=== PATIENT | male | born 1990 | race Caucasian/White ===

== ENCOUNTER 2018-02-27 22:31 | Emergency (ER) | payer SELFPAY ==
[~2018-02-27] VITALS: Ht 182.9 cm; Wt 103.0 kg
[2018-02-27 22:35] VITALS: BP 123/77; PULSE 77; RESP 15; TEMP 97.8; O2SAT 98
--- NOTE | 2018-02-27 23:19 | PD ---
HPI Chief Complaint: Laceration/Skin Injury Time Seen by Provider: 23:00 Travel History International Travel<30 days: No Contact w/Intl Traveler<30days: No Traveled to known affect area: No History of Present Illness HPI 27-year-old male who is right-handed, presents emergency department for evaluation of a puncture wound to his left hand. Patient was attempting to cut the corner piece out of the brownie davis when he slipped and punctured the palmar surface of his left hand with a knife. He states he experienced immediate pain. Severe, constant. It is exacerbated by movement. He feels as though his second and third digits are numb and tingling. Denies any alterations in range of motion. He is uncertain of his tetanus status. S. Patient has no other symptoms to report. PFSH Past Medical History Medical History: Denies Significant Hx Tetanus Vaccination: Unknown Influenza Vaccination: No Past Surgical History Surgical History: No Previous Surgery Social History Alcohol Use: No Tobacco Use: No Substance Use: Yes (MJ) Allergies-Medications (Allergen,Severity, Reaction): Coded Allergies: No Known Allergies (Unverified , 02/27/18) Reported Meds & Prescriptions Reported Meds & Active Scripts Active Carlotta (Hydrocodone-Acetaminophen) 5 Mg-325 Mg Tab 1 Tab PO Q6H PRN Ibuprofen 800 Mg Tab 800 Mg PO Q8H PRN Keflex (Cephalexin) 500 Mg Cap 500 Mg PO Q6H 5 Days Bactrim DS (Sulfamethoxazole-Trimethoprim) 800-160 Mg Tab 1 Tab PO BID Review of Systems Except as stated in HPI: all other systems reviewed are Neg Physical Exam Narrative GENERAL: Well-nourished, well-developed male patient in no acute distress. SKIN: Focused skin assessment warm/dry. 1 cm linear puncture wound on the palmar surface of the left hand. It is well approximated. Bleeding is controlled. HEAD: Normocephalic. EYES: No scleral icterus. No injection or drainage. NECK: Supple, trachea midline. No JVD or lymphadenopathy. CARDIOVASCULAR: Regular rate and rhythm without murmurs, gallops, or rubs. RESPIRATORY: Breath sounds equal bilaterally. No accessory muscle use. GASTROINTESTINAL: Abdomen soft, non-tender, nondistended. MUSCULOSKELETAL: No cyanosis, or edema. Patient has full flexion-extension of all the digits of the affected hand. He can touch thumb to every digit of the left hand. Cap refill within normal limits. Sensation is intact to the distal digits however patient reports a numb feeling in his second and third digits. BACK: Nontender without obvious deformity. No CVA tenderness. Data Data Last Documented VS Vital Signs Date Time Temp Pulse Resp B/P (MAP) Pulse Ox O2 Delivery O2 Flow Rate FiO2 02/27/18 22:35 97.8 77 15 123/77 (92) 98 Orders Orders Hand, Complete ([id number]) (02/27/18 ) Ibuprofen (Motrin) (02/27/18 23:30) Tetanus/Diphtheria Tox Adult (Tetanus/Di (02/27/18 23:30) ^ Irrigate (02/28/18 00:28) Wound Care (02/28/18 00:28) Ed Discharge Order (02/28/18 00:29) MDM Medical Decision Making Medical Screen Exam Complete: Yes Emergency Medical Condition: Yes Medical Record Reviewed: Yes Differential Diagnosis Puncture wound versus tendon injury versus foreign body versus open fracture Narrative Course 27-year-old male presents emergency department for evaluation of a puncture wound to the left hand. The wound is well approximated. It does not need to be approximated by me. Plus to reduce risk of infection, the puncture wound will not be closed. X-ray imaging confirms no acute bony abnormality. Patient will be started on oral antibiotics empirically and offer pain control. He is encouraged to return immediately with acute worsening symptoms. Diagnosis Primary Impression: Puncture wound of hand, left Qualified Codes: S61.432A - Puncture wound without foreign body of left hand, initial encounter Referrals: Hand Surgeon Primary Care Physician Patient Instructions: Acute Wound Care (DC), General Instructions Additional Instructions: KEEP THE AREA CLEAN AND DRY CODY WRAP FOR COMPRESSION ELEVATE TO REDUCE PAIN FOLLOW UP WITH HAND SPECIALIST IF NUMBNESS PERSISTS RETURN TO ED WITH ACUTE WORSENING OF SYMPTOMS Med/Other Pt SpecificInfo: Prescription(s) given Scripts Hydrocodone-Acetaminophen (Carlotta) 5 Mg-325 Mg Tab 1 TAB PO Q6H Y for PAIN GREATER THAN 6, #12 TAB 0 Refills Prov: Maritza Woods 02/28/18 Ibuprofen (Ibuprofen) 800 Mg Tab 800 MG PO Q8H Y for Pain/Inflammation, #30 TAB 0 Refills Prov: Maritza Woods 02/28/18 Cephalexin (Keflex) 500 Mg Cap 500 MG PO Q6H for Infection for 5 Days, #20 CAP 0 Refills Prov: Maritza Woods 02/28/18 Sulfamethoxazole-Trimethoprim (Bactrim DS) 800-160 Mg Tab 1 TAB PO BID for Infection, #20 TAB 0 Refills Prov: Maritza Woods 02/28/18 Disposition: 01 DISCHARGE HOME Condition: Stable Maritza Woods Feb 27, 2018 23:19
[2018-02-27] MEDS ORDERED: TETANUS/DIPHTHERIA TOXOID ADULT 0.5 ML VIAL IM ONE (23:30)
[2018-02-27] MEDS ORDERED: IBUPROFEN 800 MG TAB PO ONE (23:30)
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
[2018-02-28] MEDS ORDERED: NORC5TAB PO (00:32)
[2018-02-28] MEDS ORDERED: CEPH-460 PO (00:32)
[2018-02-28] MEDS ORDERED: IBUP1TAB7 PO (00:32)
[2018-02-28] MEDS ORDERED: BACT800T5 PO (00:32)
== END 2018-02-28 01:09 | disposition home or self-care (01) ==
LOC: NEPD 22:31
DX: S61.432A Puncture wound without foreign body of left hand, initial encounter (principal); R20.0 Anesthesia of skin; R20.2 Paresthesia of skin; Z23 Encounter for immunization; W26.0XXA Contact with knife, initial encounter; Y93.G9 Activity, other involving cooking and grilling
CPT/HCPCS: 73130; 90471; 90714

== ENCOUNTER 2018-03-03 04:27 | Emergency (ER) | payer SELFPAY ==
[~2018-03-03] VITALS: Ht 193 cm; Wt 110.0 kg
[~2018-03-03 04:27] MED LIST: BACT800T5 PO; CEPH-460 PO; IBUP1TAB7 PO; NORC5TAB PO
[2018-03-03 04:30] VITALS: BP 173/94; PULSE 97; RESP 18; TEMP 98.9; O2SAT 97
--- NOTE | 2018-03-03 04:56 | PD ---
HPI Chief Complaint: Skin Problem Time Seen by Provider: 04:54 Travel History International Travel<30 days: No Contact w/Intl Traveler<30days: No Traveled to known affect area: No History of Present Illness HPI 27-year-old male presents emergency department for evaluation of a painful area of edema on the palmar surface of the left distal fourth digit. Patient states he noticed this this morning. It woke him up. He states he did have a little puncture wound in the finger last week but it seemed to be healing on its own. Denies any fever chills. Pain is severe, throbbing, exacerbated by touch. Patient is up-to-date on his tetanus. He has no other symptoms to report. PFSH Past Medical History Medical History: Denies Significant Hx Diminished Hearing: No Tetanus Vaccination: < 5 Years Influenza Vaccination: No Past Surgical History Surgical History: No Previous Surgery Social History Alcohol Use: No Tobacco Use: No Substance Use: Yes (MJ) Allergies-Medications (Allergen,Severity, Reaction): Coded Allergies: sulfamethoxazole (Verified Allergy, Severe, 03/03/18) hives trimethoprim (Verified Allergy, Severe, 03/03/18) hives Reported Meds & Prescriptions Reported Meds & Active Scripts Active Percocet (Oxycodone-Acetaminophen) 5-325 mg Tab 1 Tab PO Q6H PRN Clindamycin (Clindamycin HCl) 150 Mg Cap 300 Mg PO Q6H 10 Days [place] (Hydrocodone-Acetaminophen) 5 Mg-325 Mg Tab 1 Tab PO Q6H PRN Ibuprofen 800 Mg Tab 800 Mg PO Q8H PRN Keflex (Cephalexin) 500 Mg Cap 500 Mg PO Q6H 5 Days Review of Systems Except as stated in HPI: all other systems reviewed are Neg Physical Exam Narrative GENERAL: Well-nourished, well-developed male patient in no acute distress. SKIN: Focused skin assessment warm/dry. Edema of the plantar surface of the left distal fourth digit. There is a small lesion. There is mild fluctuance. Tender to touch. HEAD: Normocephalic. EYES: No scleral icterus. No injection or drainage. NECK: Supple, trachea midline. No JVD or lymphadenopathy. CARDIOVASCULAR: Regular rate and rhythm without murmurs, gallops, or rubs. RESPIRATORY: Breath sounds equal bilaterally. No accessory muscle use. GASTROINTESTINAL: Abdomen soft, non-tender, nondistended. MUSCULOSKELETAL: No cyanosis, or edema. BACK: Nontender without obvious deformity. No CVA tenderness. Data Data Last Documented VS Vital Signs Date Time Temp Pulse Resp B/P (MAP) Pulse Ox O2 Delivery O2 Flow Rate FiO2 03/03/18 04:30 98.9 97 18 173/94 (120) 97 Orders Orders Wound Culture And Gram Stain (03/03/18 05:15) Oxycodone-Acetamin 5-325 Mg (Percocet (03/03/18 05:15) Ed Discharge Order (03/03/18 05:15) MDM Medical Decision Making Medical Screen Exam Complete: Yes Emergency Medical Condition: Yes Medical Record Reviewed: Yes Differential Diagnosis [place] versus paronychia versus abscess versus wart Narrative Course 27-year-old male presents emergency department for evaluation. Patient has what appears to be a felon. I&D is complete. He will be started on clindamycin. Patient is already taking Keflex from a recent injury. He is counseled on care and agrees to return immediately with any acute worsening symptoms Procedures Procedure Narrative INCISION AND DRAINAGE OF ABSCESS: The area was prepped and was sterilely draped. Topical ethyl chloride was used to anesthetize the area. The area was properly anesthetized. A number [15 scalpel was used to make a 1-cm incision across the area of the abscess. Cultures were obtained. The abscess was drained an irrigated with normal saline. Dressing was applied. Patient tolerated this well. Diagnosis Primary Impression: Felon of finger of left hand Referrals: Primary Care Physician Patient Instructions: Abscess (ED), General Instructions Additional Instructions: EPSOM salt soaks 3 times a day Elevate to reduce pain and swelling Follow-up with a primary care provider Return immediately to the emergency department with any acute worsening symptoms Med/Other Pt SpecificInfo: Prescription(s) given Scripts Oxycodone-Acetaminophen (Percocet) 5-325 mg Tab 1 TAB PO Q6H Y for PAIN GREATER THAN 5, #6 TAB 0 Refills Prov: Maritza Woods 03/03/18 Clindamycin (Clindamycin) 150 Mg Cap 300 MG PO Q6H for Infection for 10 Days, #80 CAP 0 Refills Prov: Maritza Woods 03/03/18 Disposition: 01 DISCHARGE HOME Condition: Stable Maritza Woods Mar 03, 2018 04:56
[2018-03-03] MEDS ORDERED: oxyCODONE/ACETAMINOPHEN 5 MG/325 MG TAB PO ONE (05:15)
[2018-03-03] MEDS ORDERED: PERC5TAB12 PO (05:17)
[2018-03-03] MEDS ORDERED: CLIN150C14 PO (05:17)
== END 2018-03-03 05:51 | disposition home or self-care (01) ==
LOC: NEPD 04:27
DX: L03.012 Cellulitis of left finger (principal); B95.62 Methicillin resistant Staphylococcus aureus infection as the cause of diseases classified elsewhere
CPT/HCPCS: 10060; 86403; 87070; 87186

== ENCOUNTER 2018-03-20 22:00 | Emergency (ER) | payer SELFPAY ==
[~2018-03-20 22:00] MED LIST changes: -BACT800T5 PO; +CLIN150C14 PO; +PERC5TAB12 PO
== END 2018-03-20 22:44 | disposition left against medical advice (07) ==
LOC: NED 22:00
DX: Z53.21 Procedure and treatment not carried out due to patient leaving prior to being seen by health care provider (principal)
CPT/HCPCS: 99281

== ENCOUNTER 2018-04-03 03:27 | Inpatient (IN) | payer SELFPAY ==
[2018-04-03] VITALS (21 sets, daily range): BP systolic 100–142; BP diastolic 52–109; PULSE 66–112; RESP 12–18; TEMP 97.6–99.4; O2SAT 84–100
[~2018-04-03] VITALS: Ht 190.5 cm; Wt 104.6 kg
--- NOTE | 2018-04-03 03:31 | PD ---
HPI Chief Complaint: OD Time Seen by Provider: 03:30 Travel History International Travel<30 days: No Contact w/Intl Traveler<30days: No Traveled to known affect area: No History of Present Illness HPI Initial call for unresponsive sobriety home, EMS arrived patient was found to have shallow breathing, given 2 mg of Narcan IM and now patient is breathing spontaneously on his own but is still confused with repetitive questions. Per EMS the patient was originally laying face down on his own vomitus, patient is known as IV drug user and thus had no access, EMS was unable to start an IV and instead provided supplemental oxygen via bpm and Narcan IM. Patient stated that he used fentanyl, heroin, cocaine today. Patient states allergy to sulfa Past medical history significant for MRSA infections and IVDU PFSH Past Medical History Diminished Hearing: No Social History Alcohol Use: No Tobacco Use: No Substance Use: Yes (MJ) Allergies-Medications (Allergen,Severity, Reaction): Coded Allergies: sulfamethoxazole (Verified Allergy, Severe, 03/03/18) hives trimethoprim (Verified Allergy, Severe, 03/03/18) hives Reported Meds & Prescriptions Reported Meds & Active Scripts Active Percocet (Oxycodone-Acetaminophen) 5-325 mg Tab 1 Tab PO Q6H PRN Clindamycin (Clindamycin HCl) 150 Mg Cap 300 Mg PO Q6H 10 Days [place] (Hydrocodone-Acetaminophen) 5 Mg-325 Mg Tab 1 Tab PO Q6H PRN Ibuprofen 800 Mg Tab 800 Mg PO Q8H PRN Keflex (Cephalexin) 500 Mg Cap 500 Mg PO Q6H 5 Days Review of Systems ROS Limitations: Intoxication, Altered Mental Status General / Constitutional: No: Fever Eyes: No: Visual changes HENT: No: Headaches Cardiovascular: No: Chest Pain or Discomfort Respiratory: No: Shortness of Breath Gastrointestinal: No: Abdominal Pain Genitourinary: No: Dysuria Musculoskeletal: No: Pain Skin: No Rash Neurologic: Positive: Change in Mentation Psychiatric: No: Depression Endocrine: No: Polydipsia Hematologic/Lymphatic: No: Easy Bruising Physical Exam Exam Limitations: Intoxication, Altered Mental Status Narrative GENERAL: SKIN: Warm and dry. Patient had dry vomitus all over his hair posterior head face HEAD: Atraumatic. Normocephalic. EYES: Pupils equal and round. No scleral icterus. No injection or drainage. ENT: No nasal bleeding or discharge. Mucous membranes pink and moist. NECK: Trachea midline. No JVD. CARDIOVASCULAR: Regular rhythm, tachycardic rate RESPIRATORY: No accessory muscle use. Clear to auscultation. Breath sounds equal bilaterally. GASTROINTESTINAL: Abdomen soft, non-tender, nondistended. MUSCULOSKELETAL: Extremities without clubbing, cyanosis, or edema. No obvious deformities. NEUROLOGICAL: Awake and alert. No obvious cranial nerve deficits. Motor grossly within normal limits. Five out of 5 muscle strength in the arms and legs. Normal speech. PSYCHIATRIC: Appropriate mood and affect; insight and judgment normal. Data Data Last Documented VS Vital Signs Date Time Temp Pulse Resp B/P (MAP) Pulse Ox O2 Delivery O2 Flow Rate FiO2 04/03/18 05:20 60 04/03/18 05:00 108 16 100/52 (68) 100 Ventilator 04/03/18 03:41 2.00 04/03/18 03:33 97.6 Orders Orders Complete Blood Count With Diff (04/03/18 03:31) Comprehensive Metabolic Panel (04/03/18 03:31) Creatine Kinase (Cpk) (04/03/18 03:31) Troponin I (04/03/18 03:31) Prothrombin Time / Inr (Pt) (04/03/18 03:31) Act Partial Throm Time (Ptt) (04/03/18 03:31) Lipase (04/03/18 03:31) Urinalysis - C+S If Indicated (04/03/18 03:31) Thyroid Stimulating Hormone (04/03/18 03:31) Chest, Single Ap (04/03/18 03:31) Ct Brain W/O Iv Contrast(Rout) (04/03/18 03:31) Iv Access Insert/Monitor (04/03/18 03:31) Ecg Monitoring (04/03/18 03:31) Oximetry (04/03/18 03:31) Drug Screen, Random Urine (04/03/18 03:31) Alcohol (Ethanol) (04/03/18 03:31) Salicylates (Aspirin) (04/03/18 03:31) Tylenol (Acetaminophen) (04/03/18 03:31) Sodium Chlor 0.9% 1000 Ml Inj (Ns 1000 M (04/03/18 03:45) Sepsis Workup Initiated (04/03/18 ) Lactic Acid Sepsis Protocol (04/03/18 03:45) Blood Culture (04/03/18 03:45) Metronidazole 500 Mg Inj (Flagyl 500 Mg (04/03/18 03:45) Levofloxacin 750 Mg Premix Inj (Levaquin (04/03/18 03:45) Naloxone Inj (Narcan Inj) (04/03/18 04:15) Ct Cerv Spine W/O Contrast (04/03/18 04:03) Arterial Blood Gas (Abg) (04/03/18 04:09) Resp Bipap / Cpap Non Invas Vt (04/03/18 04:09) Etomidate Inj (Amidate Inj) (04/03/18 04:14) Succinylcholine Inj (Quelicin Inj) (04/03/18 04:15) Propofol 500 Mg/50 Ml Inj (Diprivan 500 (04/03/18 04:29) Midazolam Inj (Versed Inj) (04/03/18 04:35) Propofol 1000 Mg/100 Ml Inj (Diprivan 10 (04/03/18 04:45) Midazolam Inj (Versed Inj) (04/03/18 04:45) Midazolam Inj (Versed Inj) (04/03/18 04:45) Midazolam Inj (Versed Inj) (04/03/18 04:43) Etomidate Inj (Amidate Inj) (04/03/18 04:45) Succinylcholine Inj (Quelicin Inj) (04/03/18 04:45) Methylprednisolone So Succ Inj (Solumedr (04/03/18 04:45) Sodium Chlor 0.9% 1000 Ml Inj (Ns 1000 M (04/03/18 04:44) Sodium Chlor 0.9% 1000 Ml Inj (Ns 1000 M (04/03/18 04:44) Sodium Chlor 0.9% 1000 Ml Inj (Ns 1000 M (04/03/18 04:44) Chest, Single Ap (04/03/18 04:47) Urinary Catheter Insert/Apply (04/03/18 04:47) [place]-Gastric Tube Insert/Mon (04/03/18 04:47) CKMB (04/03/18 03:50) CKMB% (04/03/18 03:50) Labs Laboratory Tests Test 04/03/18 03:50 04/03/18 03:56 04/03/18 04:51 04/03/18 05:07 White Blood Count 18.6 TH/MM3 Red Blood Count 5.23 MIL/MM3 Hemoglobin 15.4 GM/DL Hematocrit 45.8 % Mean Corpuscular Volume 87.7 FL Mean Corpuscular Hemoglobin 29.4 PG Mean Corpuscular Hemoglobin Concent 33.5 % Red Cell Distribution Width 13.4 % Platelet Count 387 TH/MM3 Mean Platelet Volume 8.8 FL Neutrophils (%) (Auto) 89.7 % Lymphocytes (%) (Auto) 6.5 % Monocytes (%) (Auto) 2.7 % Eosinophils (%) (Auto) 0.8 % Basophils (%) (Auto) 0.3 % Neutrophils # (Auto) 16.6 TH/MM3 Lymphocytes # (Auto) 1.2 TH/MM3 Monocytes # (Auto) 0.5 TH/MM3 Eosinophils # (Auto) 0.2 TH/MM3 Basophils # (Auto) 0.1 TH/MM3 CBC Comment DIFF FINAL Differential Comment Prothrombin Time 11.0 SEC Prothromb Time International Ratio 1.1 RATIO Activated Partial Thromboplast Time 27.1 SEC Blood Urea Nitrogen 8 MG/DL Creatinine 1.73 MG/DL Random Glucose 357 MG/DL Total Protein 7.6 GM/DL Albumin 2.9 GM/DL Calcium Level 8.2 MG/DL Alkaline Phosphatase 90 U/L Aspartate Amino Transf (AST/SGOT) 45 U/L Alanine Aminotransferase (ALT/SGPT) 47 U/L Total Bilirubin 0.5 MG/DL Sodium Level 137 MEQ/L Potassium Level 4.4 MEQ/L Chloride Level 96 MEQ/L Carbon Dioxide Level 30.3 MEQ/L Anion Gap 11 MEQ/L Estimat Glomerular Filtration Rate 48 ML/MIN Total Creatine Kinase 640 U/L Creatine Kinase MB 4.0 NG/ML Creatine Kinase MB % 0.6 % Troponin I 0.13 NG/ML Lipase 223 U/L Thyroid Stimulating Hormone 3rd Gen 0.979 uIU/ML Acetaminophen Level LESS THAN 2.0 MCG/ML Ethyl Alcohol Level 3 MG/DL Lactic Acid Level 3.6 mmol/L Urine Color YELLOW Urine Turbidity CLEAR Urine pH 5.5 Urine Specific Dierks 1.012 Urine Protein TRACE mg/dL Urine Glucose (UA) 1000 mg/dL Urine Ketones NEG mg/dL Urine Occult Blood NEG Urine Nitrite NEG Urine Bilirubin NEG Urine Urobilinogen LESS THAN 2.0 MG/DL Urine Leukocyte Esterase NEG Urine RBC 1 /hpf Urine WBC 3 /hpf Urine Renal Epithelial Cells 1 /hpf Urine Waxy Casts 6 /lpf Urine Mucus FEW /lpf Microscopic Urinalysis Comment CULT NOT INDICATED MDM Medical Decision Making Medical Screen Exam Complete: Yes Emergency Medical Condition: Yes Medical Record Reviewed: Yes Interpretation(s) EKG is sinus tachycardia with short SC interval, 112 bpm, incomplete right bundle branch block pattern, no evidence of any ST elevation DC pattern Differential Diagnosis Hypoglycemia versus aspiration pneumonia versus right forearm abscess versus sepsis versus electrolyte imbalance versus intracranial hemorrhage versus overdose opiate Narrative Course CBC shows 18,000 leukocytosis with left shift 90%, no anemia normal platelet count Coagulation profile is within normal limits UA is not consistent with a UTI Toxicology is negative for Tylenol and alcohol Electrolytes are within normal limits however creatinine is elevated at 1.73, GFR is decreased at 48, random glucose is 357, lactic acid is 3.6, total CPK is elevated at 640 CK-MB percent is normal however the troponin is elevated at 0.13 TSH is within normal limits ABG after intubation shows a pH of 7.328, PCO2 of 52, PaO2 of 340-100% vent was adjusted to 60% FiO2 Immediately after reviewing the chest x-ray which showed noncardiogenic pulmonary edema, patient was given Flagyl and Levaquin to cover for aspiration pneumonia, as well as intubation due to the persistent hypoxemia despite supplemental oxygen and increased work of breathing present IN the patient Critical Care Narrative CRITICAL CARE NOTE: With evaluation of the patient, labs, EKG, receipt of radiologic studies, administration of medications, reevaluation the patient and discussion of the patient with the admitting physicians, the total critical care time was [60] minutes. Time to perform other separately billable procedures was not included in the critical care time. Procedures Procedure Narrative After the risks and benefits were discussed the following procedure was performed: INTUBATION: The patient was put in optimal position for the procedure. Rapid sequence intubation was initiated by me using [20] milligrams of etomidate IV and [100] milligrams of [succynilcholine] IV. The patient was intubated with a [8-0] cuffed endotracheal tube. Tube placement was confirmed by visualization of the tube and balloon passing through the cords, capnometry and subsequent chest x-ray. Breath sounds were equal and well aerated bilaterally postintubation. No breath sounds over stomach. Patient tolerated procedure well. Diagnosis Primary Impression: Opiate overdose Additional Impressions: Hypoxemic respiratory failure status post intubation Heroin related noncardiogenic pulmonary edema Aspiration Kishan Madrid MD April 03, 2018 03:31
[2018-04-03] MEDS ORDERED: SODIUM CHLOR 0.9% 1000 ML INJ 1,000 ML IV ONE ×3 (03:45→04:44)
[2018-04-03] MEDS ORDERED: LEVOFLOXACIN 750 MG PREMIX INJ 150 ML IV STA (03:45)
[2018-04-03] MEDS ORDERED: metroNIDAZOLE 500 MG INJ 100 ML IV STA (03:45)
[2018-04-03] MEDS ORDERED: ETOMIDATE 40 MG/20 ML VIAL ONE (04:14)
[2018-04-03 04:15] LABS: AUTOMATED NEUTROPHIL # 16.6 TH/MM3 (1.8-7.7); BASOPHIL # 0.1 TH/MM3 (0-0.2); BASOPHIL % 0.3 % (0.0-2.0); EOSINOPHIL # 0.2 TH/MM3 (0-0.4); EOSINOPHIL % 0.8 % (0.0-4.0); HEMATOCRIT 45.8 % (39.0-51.0); HEMOGLOBIN 15.4 GM/DL (13.0-17.0); LYMPH % 6.5 % (9.0-44.0); LYMPHOCYTE # 1.2 TH/MM3 (1.0-4.8); MEAN CELL VOLUME 87.7 FL (80.0-100.0); MEAN CORPUSCULAR HEMOGLOBIN 29.4 PG (27.0-34.0); MEAN CORPUSCULAR HGB CONC 33.5 % (32.0-36.0); MEAN PLATELET VOLUME 8.8 FL (7.0-11.0); MONO % 2.7 % (0.0-8.0); MONOCYTE # 0.5 TH/MM3 (0-0.9); NEUT % 89.7 % (16.0-70.0); PLATELET COUNT 387 TH/MM3 (150-450); RED BLOOD COUNT 5.23 MIL/MM3 (4.50-5.90); RED CELL DISTRIBUTION WIDTH 13.4 % (11.6-17.2); WHITE BLOOD COUNT 18.6 TH/MM3 (4.0-11.0)
[2018-04-03] MEDS ORDERED: NALOXONE HCL 2 MG/2 ML VIAL IV PUSH ONE (04:15)
[2018-04-03] MEDS ORDERED: SUCCINYLCHOLINE CHLORIDE 200 MG/10 ML VIAL ONE (04:15)
--- NOTE | 2018-04-03 04:20 | RADRPT ---
EXAM DATE: 04/03/2018 3:53 AM EDT AGE/SEX: 27 years / Male INDICATIONS: Overdose. ETOH. Possible aspiration. CLINICAL DATA: This is the patient's initial encounter. Patient reports that signs and symptoms have been present for 1 day and indicates a pain score of 8/10. MEDICAL/SURGICAL HISTORY: None. None. COMPARISON: No prior [facility] exams available for comparison. FINDINGS: Mild, diffuse parenchymal opacities seen of both lungs and appear to be a combination of airspace and interstitial disease. No pleural effusion demonstrated. No pneumothorax. Heart size within normal limits. CONCLUSION: Nonspecific bilateral diffuse pulmonary opacities suggesting pneumonitis. Normal heart size. Electronically signed by: Jonathan Carrero MD 04/03/2018 4:19 AM EDT
[2018-04-03 04:23] LABS: INTERNATIONAL NORMALIZED RATIO 1.1 RATIO
[2018-04-03 04:27] LABS: ALBUMIN 2.9 GM/DL (3.4-5.0); ALT (GPT) 47 U/L (12-78); AST (GOT) 45 U/L (15-37); BICARBONATE 30.3 MEQ/L (21.0-32.0); BLOOD UREA NITROGEN 8 MG/DL (7-18); CALCIUM 8.2 MG/DL (8.5-10.1); CHLORIDE 96 MEQ/L (98-107); CREATININE 1.73 MG/DL (0.60-1.30); GLOMERULAR FILTRATION RATE 48 ML/MIN (>89); GLUCOSE,RANDOM 357 MG/DL (74-106); SODIUM (NA) 137 MEQ/L (136-145)
[2018-04-03] MEDS ORDERED: PROPOFOL 500 MG/50 ML INJ 50 ML ONE (04:29)
[2018-04-03 04:31] LABS: LACTIC ACID SEPSIS PROTOCOL 3.6 mmol/L (0.4-2.0)
[2018-04-03 04:35] LABS: ALKALINE PHOSPHATASE 90 U/L (45-117); TOTAL BILIRUBIN ADULT 0.5 MG/DL (0.2-1.0); TOTAL PROTEIN 7.6 GM/DL (6.4-8.2); TROPONIN I 0.13 NG/ML (0.02-0.05)
[2018-04-03] MEDS ORDERED: MIDAZOLAM HCL 5 MG/ML VIAL (1 ML) ONE ×3 (04:35→05:32)
[2018-04-03] MEDS ORDERED: SODIUM CHLOR 0.9% 1000 ML INJ 400 ML IV ONE (04:44)
[2018-04-03] MEDS ORDERED: PROPOFOL 1000 MG/100 ML INJ 100 ML IV PRN (04:45)
[2018-04-03] MEDS ORDERED: ETOMIDATE 20 MG/10 ML VIAL IV PUSH ONE (04:45)
[2018-04-03] MEDS ORDERED: methylPREDNISolone SOD SUCC 125 MG/2 ML VIAL IV PUSH ONE (04:45)
[2018-04-03] MEDS ORDERED: SUCCINYLCHOLINE CHLORIDE 100 MG/5 ML SYRINGE IV PUSH ONE (04:45)
[2018-04-03] MEDS ORDERED: MIDAZOLAM HCL 5 MG/5 ML VIAL IV PUSH ONE ×2 (04:45)
[2018-04-03 04:49] LABS: ACETAMINOPHEN LESS THAN 2.0 MCG/ML (10.0-30.0)
[2018-04-03 05:04] LABS: BILIRUBIN, URINE NEG (NEG); BLOOD, URINE NEG (NEG); GLUCOSE,URINE 1000 mg/dL (NEG); KETONE, URINE NEG (NEG); MUCUS URINE FEW /lpf (OCC); NITRITE,URINE NEG (NEG); PH, URINE 5.5 (5.0-8.5); RENAL EPITHELIAL CELLS 1 /hpf; URINE COLOR YELLOW (YELLW/STRAW); URINE LEUKOCYTE ESTERASE NEG (NEG); WAXY CAST, URINE 6 /lpf
--- NOTE | 2018-04-03 05:23 | RADRPT ---
EXAM DATE: 04/03/2018 5:12 AM EDT AGE/SEX: 27 years / Male INDICATIONS: Overdose. Post intubation. CLINICAL DATA: This is the patient's subsequent encounter. Patient reports that signs and symptoms h ave been present for 1 day and indicates a pain score of Nonresponsive. MEDICAL/SURGICAL HISTORY: None. None. COMPARISON: [facility] [place], CHEST SINGLE AP, 04/03/2018. . FINDINGS: Patchy diffuse airspace opacities are again seen of both lungs, both sides slightly worse in the inte rim. No large effusion. No pneumothorax. Heart size stable, within normal limits. Patient is now intubated. Endotracheal tube tip is approximately 4 cm above the miguel ángel. There is a na sogastric tube that courses into the stomach. CONCLUSION: Diffuse airspace opacities again noted and are slightly worse in the interim. Appropriate position of the endotracheal tube tip. Electronically signed by: Jonathan Carrero MD 04/03/2018 5:21 AM EDT
[2018-04-03] MEDS: SODIUM CHLOR 0.9% 1000 ML INJ 1,000 ML IV SCH ×4 (05:32→22:36)
[2018-04-03] MEDS ORDERED: POTASSIUM PHOSPHATE INJ 30 MMOL in SODIUM CHLOR 0.9% 250 ML INJ 250 ML IV PRN (05:45)
[2018-04-03] MEDS ORDERED: MAGNESIUM OXIDE 400 MG TAB PO PRN (05:45)
[2018-04-03] MEDS ORDERED: POTASSIUM CHLORIDE 25 MEQ EFFERVESCENT TAB PO PRN (05:45)
[2018-04-03] MEDS ORDERED: LORazepam 2 MG/ML VIAL IV PUSH PRN (05:45)
[2018-04-03] MEDS ORDERED: MAGNESIUM SULFATE INJ 2 GM in SODIUM CHLORIDE 0.9% INJ 96 ML IV PRN (05:45)
[2018-04-03] MEDS ORDERED: POTASSIUM PHOSPHATE MONOBASIC 500 MG TAB PO PRN (05:45)
[2018-04-03] MEDS ORDERED: NURSING INFORMATION XX SCH (05:45)
[2018-04-03] MEDS ORDERED: LACTULOSE SYRUP 20 GM/30 ML CUP PO PRN (05:45)
[2018-04-03] MEDS ORDERED: SODIUM CHLORIDE 0.9% FLUSH 10 ML FLUSH IV FLUSH PRN (05:45)
[2018-04-03] MEDS ORDERED: POTASSIUM CHLOR 20 MEQ PREMIX 100 ML IV PRN ×2 (05:45)
[2018-04-03] MEDS ORDERED: ONDANSETRON HCL 4 MG/2 ML VIAL IV PUSH PRN (05:45)
[2018-04-03] MEDS ORDERED: SODIUM PHOSPHATE INJ 30 MMOL in SODIUM CHLOR 0.9% 250 ML INJ 240 ML IV PRN (05:45)
[2018-04-03] MEDS ORDERED: POTASSIUM PHOSPHATE MONOBASIC 500 MG TAB PO/TUBE PRN (05:45)
[2018-04-03] MEDS ORDERED: RESP: ALBUTEROL 2.5 MG/IPRATROPIUM 0.5 MG NEB (PRN) INH (05:45)
[2018-04-03] MEDS ORDERED: BISACODYL 10 MG SUPP RECTAL PRN (05:45)
[2018-04-03] MEDS ORDERED: POTASSIUM CHLOR 40 MEQ PREMIX 100 ML IV PRN ×2 (05:45)
[2018-04-03] MEDS ORDERED: ACETAMINOPHEN 325 MG TAB PO PRN (05:45)
[2018-04-03] MEDS ORDERED: SENNOSIDES 8.6 MG TAB PO PRN (05:45)
[2018-04-03] MEDS ORDERED: CHLORHEXIDINE GLUCONATE 2 % 1 PACK (2 CLOTHS) TOP PRN (05:45)
[2018-04-03] MEDS ORDERED: MAGNESIUM SULFATE INJ 4 GM in SODIUM CHLORIDE 0.9% INJ 92 ML IV PRN (05:45)
[2018-04-03] MEDS ORDERED: MAGNESIUM HYDROXIDE SUSP 30 ML CUP PO PRN (05:45)
--- NOTE | 2018-04-03 05:45 | HHI.HP ---
HPI Service Critical Care Medicine Primary Care Physician Unknown Admission Diagnosis NONSTEMI, HEROIN ARDS, ASP PNA, S/P INTUBATION Diagnosis: Travel History International Travel<30 Days: No Contact w/Intl Traveler <30 Da: No Traveled to Known Affected Are: No History of Present Illness 27-year-old gentleman admitted for respiratory failure due to fentanyl/cocaine overdose. The initial call was for unresponsive at [facility] home. When EMS arrived the patient was found to have shallow breathing, was given 2 mg of Narcan IM and upon arrival to emergency department at the patient was breathing spontaneously on his own but is still confused with repetitive questions. In the emergency department he became less responsive again with a labored breathing and hypoxemia and a chest x-ray showing the development of some pulmonary edema. He was intubated by ED attending for an airway protection as well as hypoxemic respiratory failure. Review of Systems ROS Unobtainable patient sedated and intubated Past Family Social History Allergies: Coded Allergies: sulfamethoxazole (Verified Allergy, Severe, 03/03/18) hives trimethoprim (Verified Allergy, Severe, 03/03/18) hives Past Medical History Polysubstance abuse Past Surgical History None Reported Medications Reported Meds & Active Scripts Active Percocet (Oxycodone-Acetaminophen) 5-325 mg Tab 1 Tab PO Q6H PRN Clindamycin (Clindamycin HCl) 150 Mg Cap 300 Mg PO Q6H 10 Days Burns (Hydrocodone-Acetaminophen) 5 Mg-325 Mg Tab 1 Tab PO Q6H PRN Ibuprofen 800 Mg Tab 800 Mg PO Q8H PRN Keflex (Cephalexin) 500 Mg Cap 500 Mg PO Q6H 5 Days Active Ordered Medications Current Medications Medications (Trade) Dose Ordered Sig/Carlitos Route PRN Reason Start Time Stop Time Status Last Admin Dose Admin Propofol 100 ml @ 15.683 mls/ hr TITRATE PRN IV SEDATION 04/03/18 04:45 04/03/18 05:00 Sodium Chloride 1,000 ml @ 1,000 mls/hr Q1H ONCE IV 04/03/18 04:44 04/03/18 05:43 04/03/18 05:22 Sodium Chloride 1,000 ml @ 1,000 mls/hr Q1H ONCE IV 04/03/18 04:44 04/03/18 05:43 04/03/18 05:23 Family History Unobtainable Social History Per medical records review narcotic use disorder, occasional marijuana, no history of alcohol abuse Physical Exam Vital Signs Vital Signs Date Time Temp Pulse Resp B/P (MAP) Pulse Ox O2 Delivery O2 Flow Rate FiO2 04/03/18 05:29 97 16 111/59 (76) 100 Ventilator 04/03/18 05:25 97 16 111/59 (76) 100 Ventilator 60 04/03/18 05:20 60 04/03/18 05:00 108 16 100/52 (68) 100 Ventilator 100 04/03/18 04:54 100 100 04/03/18 04:30 112 18 142/109 (120) 84 Ventilator 04/03/18 04:28 100 04/03/18 03:41 107 18 134/64 (87) 94 Nasal Cannula 2.00 04/03/18 03:33 97.6 111 12 134/64 (87) 94 Physical Exam GENERAL: Well-nourished, well-developed patient. SKIN: Warm and dry. HEAD: Normocephalic. EYES: No scleral icterus. No injection or drainage. NECK: Supple, trachea midline. No JVD or lymphadenopathy. CARDIOVASCULAR: Regular rate and rhythm without murmurs, gallops, or rubs. RESPIRATORY: Breath sounds equal bilaterally. No accessory muscle use. GASTROINTESTINAL: Abdomen soft, non-tender, nondistended. MUSCULOSKELETAL: No cyanosis, or edema. BACK: Nontender without obvious deformity. NEURO EXAM: Patient sedated and intubated Laboratory Laboratory Tests Test 04/03/18 03:31 04/03/18 03:50 04/03/18 03:56 04/03/18 04:51 White Blood Count 18.6 Red Blood Count 5.23 Hemoglobin 15.4 Hematocrit 45.8 Mean Corpuscular Volume 87.7 Mean Corpuscular Hemoglobin 29.4 Mean Corpuscular Hemoglobin Concent 33.5 Red Cell Distribution Width 13.4 Platelet Count 387 Mean Platelet Volume 8.8 Neutrophils (%) (Auto) 89.7 Lymphocytes (%) (Auto) 6.5 Monocytes (%) (Auto) 2.7 Eosinophils (%) (Auto) 0.8 Basophils (%) (Auto) 0.3 Neutrophils # (Auto) 16.6 Lymphocytes # (Auto) 1.2 Monocytes # (Auto) 0.5 Eosinophils # (Auto) 0.2 Basophils # (Auto) 0.1 CBC Comment DIFF FINAL Differential Comment Prothrombin Time 11.0 Prothromb Time International Ratio 1.1 Activated Partial Thromboplast Time 27.1 Blood Urea Nitrogen 8 Creatinine 1.73 Random Glucose 357 Total Protein 7.6 Albumin 2.9 Calcium Level 8.2 Alkaline Phosphatase 90 Aspartate Amino Transf (AST/SGOT) 45 Alanine Aminotransferase (ALT/SGPT) 47 Total Bilirubin 0.5 Sodium Level 137 Potassium Level 4.4 Chloride Level 96 Carbon Dioxide Level 30.3 Anion Gap 11 Estimat Glomerular Filtration Rate 48 Total Creatine Kinase 640 Creatine Kinase MB 4.0 Creatine Kinase MB % 0.6 Troponin I 0.13 Lipase 223 Thyroid Stimulating Hormone 3rd Gen 0.979 Acetaminophen Level LESS THAN 2.0 Ethyl Alcohol Level 3 Lactic Acid Level 3.6 Urine Color YELLOW Urine Turbidity CLEAR Urine pH 5.5 Urine Specific Finger 1.012 Urine Protein TRACE Urine Glucose (UA) 1000 Urine Ketones NEG Urine Occult Blood NEG Urine Nitrite NEG Urine Bilirubin NEG Urine Urobilinogen LESS THAN 2.0 Urine Leukocyte Esterase NEG Urine RBC 1 Urine WBC 3 Urine Renal Epithelial Cells 1 Urine Waxy Casts 6 Urine Mucus FEW Microscopic Urinalysis Comment CULT NOT INDICATED Test 04/03/18 05:07 Blood Gas Puncture Site LT RADIAL Blood Gas Patient Temperature 98.6 Blood Gas HCO3 27 Blood Gas Base Excess 1.3 Blood Gas Oxygen Saturation 96 Arterial Blood pH 7.33 Arterial Blood Partial Pressure CO2 52 Arterial Blood Partial Pressure O2 342 Arterial Blood Oxygen Content 18.8 Arterial Blood Carboxyhemoglobin 3.2 Arterial Blood Methemoglobin 0.6 Blood Gas Hemoglobin 13.3 Oxygen Delivery Device VENT Blood Gas Ventilator Setting PRVC/AC Blood Gas Inspired Oxygen 100 Date/Time Source Procedure Growth Status 04/03/18 03:55 Blood Peripheral Aerobic Blood Culture Pending Received 04/03/18 03:55 Blood Peripheral Anaerobic Blood Culture Pending Received Result Diagram: 04/03/18 0350 04/03/18 0350 Imaging Last 24 hours Impressions Chest X-Ray 04/03/18 3458 Signed Impressions: CONCLUSION: Diffuse airspace opacities again noted and are slightly worse in the interim. A ppropriate position of the endotracheal tube tip. Chest X-Ray 04/03/18 3387 Signed Impressions: CONCLUSION: Nonspecific bilateral diffuse pulmonary opacities suggesting pneumonitis. Khalida l heart size. Septic Shock Reassessment Septic shock perfusion: reassessment completed Caprini VTE Risk Assessment Caprini VTE Risk Assessment: Mod/High Risk (score >= 2) Caprini Risk Assessment Model Point Value = 1 Point Value = 2 Point Value = 3 Point Value = 5 Age 41-60 Minor surgery BMI > 25 kg/m2 Swollen legs Varicose veins or History of unexplained or recurrent spontaneous Oral contraceptives or hormone replacement Sepsis (< 1 month) Serious lung disease, including pneumonia (< 1 month) Abnormal pulmonary function Acute myocardial infarction Congestive heart failure (< 1 month) History of inflammatory bowel disease Medical patient at bed rest Age 61-74 Arthroscopic surgery Major open surgery (> 45 min) Laparoscopic surgery (> 45 min) Malignancy Confined to bed (> 72 hours) Immobilizing plaster cast Central venous access Age >= 75 History of VTE Family history of VTE Factor V Leiden Prothrombin [id number] Lupus anticoagulant Anticardiolipin antibodies Elevated serum homocysteine Heparin-induced thrombocytopenia Other congenital or acquired thrombophilia Stroke (< 1 month) Elective arthroplasty Hip, pelvis, or leg fracture Acute spinal cord injury (< 1 month) Prophylaxis Regimen Total Risk Factor Score Risk Level Prophylaxis Regimen 0-1 Low Early ambulation 2 Moderate Order ONE of the following: *Sequential Compression Device (SCD) *Heparin 5000 units SQ BID 3-4 Higher Order ONE of the following medications: *Heparin 5000 units SQ TID *Enoxaparin/Lovenox 40 mg SQ daily (WT < 150 kg, CrCl > 30 mL/min) *Enoxaparin/Lovenox 30 mg SQ daily (WT < 150 kg, CrCl > 10-29 mL/min) *Enoxaparin/Lovenox 30 mg SQ BID (WT < 150 kg, CrCl > 30 mL/min) AND/OR *Sequential Compression Device (SCD) 5 or more Highest Order ONE of the following medications: *Heparin 5000 units SQ TID (Preferred with Epidurals) *Enoxaparin/Lovenox 40 mg SQ daily (WT < 150 kg, CrCl > 30 mL/min) *Enoxaparin/Lovenox 30 mg SQ daily (WT < 150 kg, CrCl > 10-29 mL/min) *Enoxaparin/Lovenox 30 mg SQ BID (WT < 150 kg, CrCl > 30 mL/min) AND *Sequential Compression Device (SCD) Assessment and Plan Assessment and Plan Respiratory failure -Intubated for airway protection -Continue mechanical ventilation to neurologically improve -Vent bundle -SVTs daily while awake Pulmonary edema -Noncardiogenic -Supportive care Narcotic overdose -Monitor for withdrawal -Narcaine as needed Acute kidney injury -Aggressive IV fluid rehydration -Strict I's and O's -Monitor creatinine and electrolytes levels DVT GI prophylaxis -Teds SCDs -Subcu Lovenox -Pepcid Critical Care: The total critical care time was 35 minutes. Time to perform other separately billable procedures was not included in the critical care time. Ronnie Velásquez MD April 03, 2018 05:45
[2018-04-03] MEDS ORDERED: ENOXAPARIN SODIUM 40 MG/0.4 ML SYRINGE SQ SCH (06:00)
--- NOTE | 2018-04-03 06:50 | RADRPT ---
EXAM DATE: 04/03/2018 6:43 AM EDT AGE/SEX: 27 years / Male INDICATIONS: Altered mental status; possible overdose. Trauma. CLINICAL DATA: This is the patient's initial encounter. Patient reports that signs and symptoms have been present for 1 day and indicates a pain score of Nonresponsive. MEDICAL/SURGICAL HISTORY: . IV drug abuse None. RADIATION DOSE: 56.35 CTDI (mGy) COMPARISON: [facility] – [place], [place] CERVICAL SPINE W/O CONTRAST, 04/03/2018. . TECHNIQUE: CT of the head without contrast. Using automated exposure control and adjustment of the mA and/or kV according to patient size, radiation dose was kept as low as reasonably achievable to ob tain optimal diagnostic quality images. FINDINGS: Cerebrum: The ventricles are normal for age. No evidence of midline shift, mass lesion, hemorrhage or acute infarction. No extraaxial fluid collections are seen. Posterior Fossa: The cerebellum and brainstem are intact. The 4th ventricle is midline. The cerebe llopontine angle is unremarkable. Extracranial: The visualized portion of the orbits is intact. Skull: Hairline skull base fracture seen involving the right occipital bone, for example series 301 image 3. This is presumably acute. CONCLUSION: 1. Nondisplaced skull base fracture involving the right occipital bone. 2. No bleed or other acute intracranial abnormality demonstrated. Electronically signed by: Jonathan Carrero MD 04/03/2018 6:48 AM EDT
--- NOTE | 2018-04-03 07:00 | RADRPT ---
EXAM DATE: 04/03/2018 6:49 AM EDT AGE/SEX: 27 years / Male INDICATIONS: Altered mental status; possible overdose. Trauma. CLINICAL DATA: This is the patient's initial encounter. Patient reports that signs and symptoms have been present for 1 day and indicates a pain score of Nonresponsive. MEDICAL/SURGICAL HISTORY: . IV drug abuse None. RADIATION DOSE: 20.51 CTDI (mGy) COMPARISON: No prior [facility] exams available for comparison. TECHNIQUE: Contiguous axial images were obtained using helical multirow detector technique. The vol umetric data was post-processed with multiplanar reconstruction in oblique axial, sagittal, and coron al planes. Using automated exposure control and adjustment of the mA and/or kV according to patient s ize, radiation dose was kept as low as reasonably achievable to obtain optimal diagnostic quality albert ges. FINDINGS: Vertebrae: Normal vertebral body height. Alignment: Normal. No subluxation. C2-3: The bony spinal canal is normal in size. No evidence of disc bulge or herniation. The neural foramina are bilaterally patent. C3-4: The bony spinal canal is normal in size. No evidence of disc bulge or herniation. The neural foramina are bilaterally patent. C4-5: The bony spinal canal is normal in size. No evidence of disc bulge or herniation. The neural foramina are bilaterally patent. C5-6: The bony spinal canal is normal in size. No evidence of disc bulge or herniation. The neural foramina are bilaterally patent. C6-7: The bony spinal canal is normal in size. No evidence of disc bulge or herniation. The neural foramina are bilaterally patent. C7-T1: The bony spinal canal is normal in size. No evidence of disc bulge or herniation. The neura l foramina are bilaterally patent. There is patchy airspace consolidation of the visualized lung apices. Patient has a nondisplaced fracture of the right occipital bone. CONCLUSION: 1. Intact cervical spine. 2. Nondisplaced, presumably acute fracture of the right occipital bone. 3. Patchy nodular consolidation of the visualized lung apices. Electronically signed by: Jonathan Carrero MD 04/03/2018 6:58 AM EDT
[2018-04-03] MEDS: PROPOFOL 1000 MG/100 ML INJ 100 ML IV PRN ×6 (07:52→22:37)
[2018-04-03] MEDS: CHLORHEXIDINE 0.12% (ORAL KIT) 15 ML CUP MT SCH ×2 (08:00→19:58)
[2018-04-03] MEDS ORDERED: AZITHROMYCIN INJ 500 MG in SODIUM CHLOR 0.9% 250 ML INJ 250 ML IV SCH (08:00)
--- NOTE | 2018-04-03 08:08 | HHI.CCPN ---
Subjective Remarks/Hospital Course 27-year-old gentleman admitted for respiratory failure due to fentanyl/cocaine overdose. The initial call was for unresponsive at [facility] home. When EMS arrived the patient was found to have shallow breathing, was given 2 mg of Narcan IM and upon arrival to emergency department at the patient was breathing spontaneously on his own but is still confused with repetitive questions. In the emergency department he became less responsive again with a labored breathing and hypoxemia and a chest x-ray showing the development of some pulmonary edema. He was intubated by ED attending for an airway protection as well as hypoxemic respiratory failure. Subjective: 04/03/2018-0715. The patient arrived in the ICU intubated sedated , Bayside collar intact. Spontaneous movement of extremities 4 under sedation currently propofol at 50 mcgs. Open lacerated right forearm abscess noted. Wound culture obtained. Imaging studies reviewed hairline skull base fracture right occipital area. Neurosurgery notified spoke with Dr. Harvey, will follow up any recommendations. Repeat CT brain and max face scheduled for 1500 hrs. today. Lovenox was giving this a.m. we will hold future dosing await neurosurgery recommendations. Objective Vital Signs Date Time Temp Pulse Resp B/P (MAP) Pulse Ox O2 Delivery O2 Flow Rate FiO2 04/03/18 05:29 97 16 111/59 (76) 100 Ventilator 04/03/18 05:25 60 04/03/18 03:41 2.00 04/03/18 03:33 97.6 Intake and Output 04/03/18 04/03/18 04/04/18 08:00 16:00 00:00 Intake Total 1250 ml Balance 1250 ml Result Diagram: 04/03/18 0350 04/03/18 0350 Other Results Laboratory Tests Test 04/03/18 05:07 Blood Gas Puncture Site LT RADIAL Blood Gas Patient Temperature 98.6 Blood Gas HCO3 27 mmol/L (22-26) Blood Gas Base Excess 1.3 mmol/L (-2-2) Blood Gas Oxygen Saturation 96 % (90-100) Arterial Blood pH 7.33 (7.380-7.420) Arterial Blood Partial Pressure CO2 52 mmHg (38-42) Arterial Blood Partial Pressure O2 342 mmHG (61-120) Arterial Blood Oxygen Content 18.8 Vol % (12.0-20.0) Arterial Blood Carboxyhemoglobin 3.2 % (0-4) Arterial Blood Methemoglobin 0.6 % (0-2) Blood Gas Hemoglobin 13.3 G/DL (12.0-16.0) Oxygen Delivery Device VENT Blood Gas Ventilator Setting PRVC/AC Blood Gas Inspired Oxygen 100 % Imaging Last Impressions Chest X-Ray 04/03/18446 Signed Impressions: CONCLUSION: Diffuse airspace opacities again noted and are slightly worse in the interim. A ppropriate position of the endotracheal tube tip. Cervical Spine CT 04/03/18402 Signed Impressions: CONCLUSION: 1. Intact cervical spine. 2. Nondisplaced, presumably acute fracture of the right occipital bone. 3. Patchy nodular consolidation of the visualized lung apices. Head CT 04/03/18330 Signed Impressions: CONCLUSION: 1. Nondisplaced skull base fracture involving the right occipital bone. 2. No bleed or other acute intracranial abnormality demonstrated. Last 24 hours Impressions Chest X-Ray 04/03/18446 Signed Impressions: CONCLUSION: Diffuse airspace opacities again noted and are slightly worse in the interim. A ppropriate position of the endotracheal tube tip. Chest X-Ray 04/03/18330 Signed Impressions: CONCLUSION: Nonspecific bilateral diffuse pulmonary opacities suggesting pneumonitis. Khalida l heart size. Objective Remarks GENERAL: This is a well-nourished, well-developed male sedated and intubated SKIN: Warm and dry. Multiple bug bite lesions noted on torso and bilateral upper and lower extremities. Right forearm abscess noted , status post incision and drainage HEAD: Normocephalic. Dried blood emanating from naris noted previous epistaxis EYES: No scleral icterus. No injection or drainage. Miotic, 2 mm brisk and reactive NECK: Supple, trachea midline. No JVD or lymphadenopathy. Oral tracheal intubation. Bayside collar intact. C-spine though cleared patient sedated CARDIOVASCULAR: Regular rate and rhythm without murmurs, gallops, or rubs. RESPIRATORY: Breath sounds equal bilaterally. No accessory muscle use. Bilateral chest excursion GASTROINTESTINAL: Abdomen soft, non-tender, nondistended. Bowel sounds active MUSCULOSKELETAL: No cyanosis, or edema. BACK: Nontender without obvious deformity. NEURO EXAM: GCS currently 3T. patient sedated and intubated. Spontaneous movement noted bilateral upper and lower extremities A/P Assessment and Plan Plan by systems: Neurologic: Polysubstance abuse History of IVDU Epistaxis Narcotic overdose Sedated and intubated currently propofol 50 mics/kilo/hour to maintain ventilator synchrony CT brain noted hairline skull fracture right occipital area Neurosurgery contacted Dr. Harvey await recommendations Repeat CT brain and max face and 12 hours Begin daily sedation vacation when appropriate Tylenol 650 mg every 6 hours as needed for temperature greater than 101 Urine tox positive for alcohol, cocaine, cannabinoids Avoid instrumentation of nares Monitor ammonia level Monitor for signs of withdrawal Respiratory: Pulmonary edema-noncardiogenic Aspiration Acute hypoxemic respiratory failure Follow-up chest x-ray in am Intubated for airway protection Continue mechanical ventilation to neurologically improve FiO2 weaned to 50% Begin CPAP trials when clinically indicated Duo nebs every 6 hours scheduled every 2 hours as needed Obtain ABG in a.m. Ventilator bundle Cardiovascular: Maintain map greater than 65mmHG Telemetry sinus rhythm Renal: AK I Maintain Avendaño for now -- Strict I/Os FEN/GI: Elevated creatinine Rhabdomyolysis Monitor creatinine kinase levels Continue normal saline at 150 cc/hr Electrolyte replacement per ICU protocol Maintain n.p.o. status for now We will initiate tube feeds in a.m. Heme/ID: Abscess right forearm Obtain wound Follow-up blood, urine and sputum cultures History of MRSA Initiate empiric antibiotics-azithromycin and Zosyn Endocrine: Hyperglycemia of critical illness Glucose monitoring per ICU protocol, low dose regimen -- SSI Prophylaxis: GI Prophylaxis Famotidine BID DVT Prophylaxis -- SCDs Hold pharmacological DVT prophylaxis at this time. Will await recommendations from neurosurgery Lines: Peripheral IVs 2. Central line if indicated Dispo: my billing statement This patient remains critically ill with one or more organ systems which are or may become a threat to life. I have spent in excess of 37 minutes discontinuously in the care and management of this patient. This time is exclusive of procedures, and includes, but is not limited to, evaluation of the patient, review of the medical record, discussions with family, consultants, nursing staff, or respiratory therapy, and documentation in the medical record. Physician Zoey Montero MD April 03, 2018 08:08
[2018-04-03] MEDS ORDERED: DEXTROSE 50% IN WATER 50 ML VIAL(D50) IV PUSH PRN (08:15)
[2018-04-03] MEDS ORDERED: GLUCAGON 1 MG/ML VIAL OTHER PRN (08:15)
[2018-04-03] MEDS: ARTIFICIAL TEARS OPTH SOLN 15 ML BTL EACH EYE SCH ×3 (08:36→17:44)
[2018-04-03] MEDS: PIPERACIL-TAZO 4.5 GM PREMIX 100 ML IV SCH ×3 (08:54→19:59)
[2018-04-03] MEDS: FAMOTIDINE 20 MG/2 ML VIAL IV PUSH SCH ×2 (08:54→19:58)
[2018-04-03] MEDS: SODIUM CHLORIDE 0.9% FLUSH 10 ML FLUSH IV FLUSH SCH ×2 (08:54→20:06)
[2018-04-03] MEDS: DOCUSATE SODIUM 50 MG/SENNA 8.6 MG TAB PO SCH ×2 (08:55→19:59)
[2018-04-03] MEDS: INSULIN ASPART SUPPLEMENTAL SCALE SQ SCH ×3 (11:56→19:59)
[2018-04-03] MEDS: RESP: ALBUTEROL 2.5 MG/IPRATROPIUM 0.5 MG NEB (SCH) NEB ×2 (14:45→19:41)
--- NOTE | 2018-04-03 15:06 | EKG ---
Date Performed: 04/03/2018 Time Performed: 10:22:47 PTAGE: 27 years EKG: Sinus rhythm BORDERLINE SHORT WY INTERVAL RIGHT VENTRIUCLAR CONDUCTION DISTRUBANCE BORDERLINE ECG Compared to PREVIOUS TRACING , the heart rate is slower. PREVIOUS TRACIN04/03/2018 03.37 DOCTOR: Tony Barksdale Interpretating Date/Time 04/03/2018 15:06:03
--- NOTE | 2018-04-03 15:06 | EKG ---
Date Performed: 04/03/2018 Time Performed: 03:37:36 PTAGE: 27 years EKG: SINUS TACHYCARDIA WITH SHORT ND INTERVAL INCOMPLETE RIGHT BUNDLE BRANCH BLOCK ABNORMAL RHYT HM ECG NO PREVIOUS TRACING DOCTOR: Tony Barksdale Interpretating Date/Time 04/03/2018 15:04:20
[2018-04-03 16:49] LABS: INTERNATIONAL NORMALIZED RATIO 1.1 RATIO; PROTHROMBIN TIME - PATIENT 11.1 SEC (9.8-11.6)
--- NOTE | 2018-04-03 17:22 | RADRPT ---
EXAM DATE: 04/03/2018 5:11 PM EDT AGE/SEX: 27 years / Male INDICATIONS: Trauma; fall. CLINICAL DATA: This is the patient's initial encounter. Patient reports that signs and symptoms have been present for 1 day and indicates a pain score of Nonresponsive. MEDICAL/SURGICAL HISTORY: . MRSAIV drug use. None. RADIATION DOSE: 23.27 CTDI (mGy) COMPARISON: None. TECHNIQUE: Contiguous images in the axial and coronal planes were obtained using helical multirow de tector technique. Using automated exposure control and adjustment of the mA and/or kV according to p atient size, radiation dose was kept as low as reasonably achievable to obtain optimal diagnostic sanchez lity images. FINDINGS: Orbits: The orbital and infraorbital osseous structures are intact. The retroconal structures have a normal configuration. No radiopaque foreign bodies are seen. Nasal Bone: The nasal bone and maxillary spine are intact. Zygomatic Arches: Symmetric without evidence of fracture. Sinuses: The maxillary, ethmoid, and frontal sinuses are intact. No air-fluid levels seen. Small mu cous retention cyst within the left maxillary sinus. Nasal Cavity: The nasal septum is intact and deviated slightly towards the patient's left. The lacr imal ducts are intact. Soft Tissues: No radiopaque foreign bodies seen. No soft-tissue swelling is seen. Intracranial: No intracranial air seen. Cribriform Plate: Grossly intact. Endotracheal tube and orogastric tube noted. CONCLUSION: 1. No fracture or dislocation. Electronically signed by: Romeo Coughlin MD 04/03/2018 5:21 PM EDT
--- NOTE | 2018-04-03 17:28 | RADRPT ---
EXAM DATE: 04/03/2018 5:11 PM EDT AGE/SEX: 27 years / Male INDICATIONS: Trauma; fall. CLINICAL DATA: This is the patient's subsequent encounter. Patient reports that signs and symptoms h ave been present for 2 days and indicates a pain score of Nonresponsive. MEDICAL/SURGICAL HISTORY: . MRSAIV drug use. None. RADIATION DOSE: 56.35 CTDI (mGy) COMPARISON: CT of the brain April 03, 2018. TECHNIQUE: CT of the head without contrast. Using automated exposure control and adjustment of the mA and/or kV according to patient size, radiation dose was kept as low as reasonably achievable to ob tain optimal diagnostic quality images. FINDINGS: Cerebrum: The ventricles are normal for age. No evidence of midline shift, mass lesion, hemorrhage or acute infarction. No extraaxial fluid collections are seen. Posterior Fossa: The cerebellum and brainstem are intact. The 4th ventricle is midline. The cerebe llopontine angle is unremarkable. Extracranial: The visualized portion of the orbits is intact. Skull: Again seen is a nondisplaced fracture involving the right occipital bone. This is unchanged.. CONCLUSION: 1. Unchanged nondisplaced fracture involving the right occipital bone. 2. No acute intracranial abnormality otherwise. Electronically signed by: Romeo Coughlin MD 04/03/2018 5:26 PM EDT
--- NOTE | 2018-04-03 23:21 | PD.CONS ---
History of Present Illness Service Neurosurgery Consult Requested By [employer]-Dr. Fields Reason for Consult Occipital skull fracture Primary Care Physician Unknown Diagnoses: History of Present Illness 27-year-old male admitted through the emergency room with respiratory failure after being found at home with shallow breathing. Patient reportedly unresponsive on initial EMS evaluation, confused with repetitive speech at the initial emergency room evaluation. Intubated. He is now on the medical intensive care unit, diagnosed with respiratory failure , pulmonary edema, acute kidney injury. No definite seizure activity reported. Review of Systems Unable to obtain review of systems from patient Past Family Social History Allergies: Coded Allergies: sulfamethoxazole (Verified Allergy, Severe, 03/03/18) hives trimethoprim (Verified Allergy, Severe, 03/03/18) hives Past Medical History Unable to obtain past medical, social, surgical history from patient Physical Exam Vital Signs Vital Signs Date Time Temp Pulse Resp B/P (MAP) Pulse Ox O2 Delivery O2 Flow Rate FiO2 04/03/18 22:10 100 40 04/03/18 22:00 72 04/03/18 20:00 98.5 68 15 124/77 (93) 100 04/03/18 20:00 40 04/03/18 20:00 69 04/03/18 19:55 100 40 04/03/18 18:00 66 04/03/18 18:00 40 04/03/18 17:25 100 100 04/03/18 16:00 60 04/03/18 16:00 99.4 71 16 113/65 (81) 99 04/03/18 16:00 69 04/03/18 14:45 100 45 04/03/18 14:00 70 04/03/18 12:00 74 04/03/18 12:00 98.9 74 13 104/60 (75) 99 04/03/18 12:00 60 04/03/18 11:21 99 45 04/03/18 10:00 84 04/03/18 08:01 98 45 04/03/18 08:00 60 04/03/18 08:00 98.8 04/03/18 08:00 85 04/03/18 05:29 97 16 111/59 (76) 100 Ventilator 04/03/18 05:25 97 16 111/59 (76) 100 Ventilator 60 04/03/18 05:20 60 04/03/18 05:00 108 16 100/52 (68) 100 Ventilator 100 04/03/18 04:54 100 100 04/03/18 04:30 112 18 142/109 (120) 84 Ventilator 04/03/18 04:28 100 04/03/18 03:41 107 18 134/64 (87) 94 Nasal Cannula 2.00 04/03/18 03:33 97.6 111 12 134/64 (87) 94 Physical Exam GENERAL: This is a well-nourished, well-developed patient, intubated and sedated SKIN: Scattered erythematous skin lesions HEAD: Atraumatic. Normocephalic. No temporal or scalp tenderness. EYES: Pupils equal round and reactive. Extraocular motions intact. No scleral icterus. No injection or drainage. ENT: Nose without bleeding, purulent drainage or septal hematoma. Throat without erythema, tonsillar hypertrophy or exudate. Uvula midline. Airway patent. NECK: Trachea midline. No JVD or lymphadenopathy. Supple, nontender, no meningeal signs. CARDIOVASCULAR: Regular rate and rhythm without murmurs, gallops, or rubs. RESPIRATORY: Intubated. No spontaneous respirations noted GASTROINTESTINAL: Abdomen soft, nondistended MUSCULOSKELETAL: No obvious long bone or joint deformity NEUROLOGICAL: Pupils 2 mm nonreactive Mild corneal response Mild cough and gag response No response to deep pain all extremities Laboratory Laboratory Tests Test 04/03/18 03:31 04/03/18 03:50 04/03/18 03:56 04/03/18 04:51 Urine Opiates Screen NEG Urine Barbiturates Screen NEG Urine Amphetamines Screen NEG Urine Benzodiazepines Screen NEG Urine Cocaine Screen POS Urine Cannabinoids Screen POS White Blood Count 18.6 Red Blood Count 5.23 Hemoglobin 15.4 Hematocrit 45.8 Mean Corpuscular Volume 87.7 Mean Corpuscular Hemoglobin 29.4 Mean Corpuscular Hemoglobin Concent 33.5 Red Cell Distribution Width 13.4 Platelet Count 387 Mean Platelet Volume 8.8 Neutrophils (%) (Auto) 89.7 Lymphocytes (%) (Auto) 6.5 Monocytes (%) (Auto) 2.7 Eosinophils (%) (Auto) 0.8 Basophils (%) (Auto) 0.3 Neutrophils # (Auto) 16.6 Lymphocytes # (Auto) 1.2 Monocytes # (Auto) 0.5 Eosinophils # (Auto) 0.2 Basophils # (Auto) 0.1 CBC Comment DIFF FINAL Differential Comment Prothrombin Time 11.0 Prothromb Time International Ratio 1.1 Activated Partial Thromboplast Time 27.1 Blood Urea Nitrogen 8 Creatinine 1.73 Random Glucose 357 Total Protein 7.6 Albumin 2.9 Calcium Level 8.2 Alkaline Phosphatase 90 Aspartate Amino Transf (AST/SGOT) 45 Alanine Aminotransferase (ALT/SGPT) 47 Total Bilirubin 0.5 Sodium Level 137 Potassium Level 4.4 Chloride Level 96 Carbon Dioxide Level 30.3 Anion Gap 11 Estimat Glomerular Filtration Rate 48 Phosphorus Level 6.4 Total Creatine Kinase 640 Creatine Kinase MB 4.0 Creatine Kinase MB % 0.6 Troponin I 0.13 Lipase 223 Thyroid Stimulating Hormone 3rd Gen 0.979 Salicylates Level LESS THAN 1.7 Acetaminophen Level LESS THAN 2.0 Ethyl Alcohol Level 3 Lactic Acid Level 3.6 Urine Color YELLOW Urine Turbidity CLEAR Urine pH 5.5 Urine Specific [place] 1.012 Urine Protein TRACE Urine Glucose (UA) 1000 Urine Ketones NEG Urine Occult Blood NEG Urine Nitrite NEG Urine Bilirubin NEG Urine Urobilinogen LESS THAN 2.0 Urine Leukocyte Esterase NEG Urine RBC 1 Urine WBC 3 Urine Renal Epithelial Cells 1 Urine Waxy Casts 6 Urine Mucus FEW Microscopic Urinalysis Comment CULT NOT INDICATED Test 04/03/18 05:07 04/03/18 06:08 04/03/18 07:15 04/03/18 07:58 Blood Gas Puncture Site LT RADIAL Blood Gas Patient Temperature 98.6 Blood Gas HCO3 27 Blood Gas Base Excess 1.3 Blood Gas Oxygen Saturation 96 Arterial Blood pH 7.33 Arterial Blood Partial Pressure CO2 52 Arterial Blood Partial Pressure O2 342 Arterial Blood Oxygen Content 18.8 Arterial Blood Carboxyhemoglobin 3.2 Arterial Blood Methemoglobin 0.6 Blood Gas Hemoglobin 13.3 Oxygen Delivery Device VENT Blood Gas Ventilator Setting PRVC/AC Blood Gas Inspired Oxygen 100 Lactic Acid Level 1.4 Nasal Screen MRSA (PCR) MRSA NOT DETECTED Troponin I 0.33 Test 04/03/18 16:16 Prothrombin Time 11.1 Prothromb Time International Ratio 1.1 Troponin I 0.09 Date/Time Source Procedure Growth Status 04/03/18 03:55 Blood Peripheral Aerobic Blood Culture Pending Received 04/03/18 03:55 Blood Peripheral Anaerobic Blood Culture Pending Received 04/03/18 07:18 Sputum Endotracheal Gram Stain Pending Received 04/03/18 07:18 Sputum Endotracheal Sputum Culture Pending Received 04/03/18 07:20 Abscess Arm Gram Stain Pending Received 04/03/18 07:20 Abscess Arm Wound Culture Pending Received Result Diagram: 04/03/18 0350 04/03/18 0350 Imaging 04/03/2018 CT scan of the head and cervical spine images reviewed. The patient has a thin nondisplaced right occipital bone fracture. No other significant intracranial findings noted. Maxillofacial CT 04/03/18 1500 Signed Impressions: CONCLUSION: 1. No fracture or dislocation. Head CT 04/03/18 1500 Signed Impressions: CONCLUSION: 1. Unchanged nondisplaced fracture involving the right occipital bone. 2. No acute intracranial abnormality otherwise. Chest X-Ray 04/03/18 0447 Signed Impressions: CONCLUSION: Diffuse airspace opacities again noted and are slightly worse in the interim. A ppropriate position of the endotracheal tube tip. Cervical Spine CT 04/03/18 0403 Signed Impressions: CONCLUSION: 1. Intact cervical spine. 2. Nondisplaced, presumably acute fracture of the right occipital bone. 3. Patchy nodular consolidation of the visualized lung apices. Assessment and Plan Assessment and Plan Impression: 1. Occipital skull fracture. 2. No definite indication of significant traumatic brain injury contributing to his overall mental status and neurologic changes. Plan: No family available at the time of initial evaluation for discussion of the findings. Continuing ventilatory support, sedation as needed. Likely no intervention required in regards to the occipital skull fracture. We will follow intermittently until more awake and alert when symptoms and examination can be better assessed Pancho Harvey MD April 03, 2018 23:21
[2018-04-03] MEDS ORDERED: DEXMEDETOMIDINE INJ 200 MCG in SODIUM CHLORIDE 0.9% INJ 50 ML IV PRN (23:30)
[2018-04-04] VITALS: BP 116/67; PULSE 72; RESP 18; TEMP 100.1; O2SAT 100; O2SAT 98
[2018-04-04 01:05] VITALS: O2SAT 98
[2018-04-04 01:37] VITALS: BP 125/80; PULSE 72; RESP 18; TEMP 99.1; O2SAT 100
[2018-04-04] MEDS ORDERED: CHLORHEXIDINE GLUCONATE 2 % 1 PACK (2 CLOTHS) TOP SCH (04:00)
--- NOTE | 2018-04-04 13:53 | EKG ---
Date Performed: 04/03/2018 Time Performed: 15:36:21 PTAGE: 27 years EKG: Sinus rhythm POSSIBLE RIGHT VENTRICULAR CONDUCTION DELAY BORDERLINE ECG Compared to PREVIOUS TRACING , RI interval continues to be short, no signficant change has occurred. PREVIOUS TRACIN04/03/2018 10.22 DOCTOR: Tony Barksdale Interpretating Date/Time 04/04/2018 13:52:46
== END 2018-04-04 02:15 | disposition left against medical advice (07) | DRG 208 ==
LOC: NEPC 03:27 → NEDA 05:31 → HIMN 06:50
PROVIDERS: ADMIT Internal Medicine Critical Care Medicine; ATTEND Internal Medicine Critical Care Medicine
PROC: 0BH17EZ Insertion of Endotracheal Airway into Trachea, Via Natural or Artificial Opening (ICD-10-PCS; principal; 2018-04-03)
PROC: 5A1935Z Respiratory Ventilation, Less than 24 Consecutive Hours (ICD-10-PCS; 2018-04-03)
DX: J96.01 Acute respiratory failure with hypoxia (principal); N17.9 Acute kidney failure, unspecified; J81.1 Chronic pulmonary edema; M62.82 Rhabdomyolysis; L02.413 Cutaneous abscess of right upper limb; S02.119A Unspecified fracture of occiput, initial encounter for closed fracture; F19.10 Other psychoactive substance abuse, uncomplicated; B95.5 Unspecified streptococcus as the cause of diseases classified elsewhere; R04.0 Epistaxis; R73.9 Hyperglycemia, unspecified; T40.601A Poisoning by unspecified narcotics, accidental (unintentional), initial encounter; Z88.2 Allergy status to sulfonamides; Z79.2 Long term (current) use of antibiotics; Z79.891 Long term (current) use of opiate analgesic; Z79.899 Other long term (current) drug therapy
CPT/HCPCS: 36600; 70450; 70486; 71045; 72125; 80053; 80307; 81001; 82550; 82552; 82805; 82948; 83605; 83690; 84100; 84443; 84484; 85025; 85610; 85730; 86403; 87040; 87070; 87205; 87641; 93005; 94002; 94003; 94640; 94664; J0330; J0456; J1650; J1956; J2060; J2250; J2310; J2543; J2930; J7030; J7050

== ENCOUNTER 2018-04-04 02:51 | Observation (INO) | payer SELFPAY ==
[~2018-04-04] VITALS: Ht 193 cm; Wt 105.0 kg
[2018-04-04 03:09] VITALS: BP 133/81; PULSE 93; RESP 18; TEMP 99.1; O2SAT 97
--- NOTE | 2018-04-04 04:48 | PD ---
HPI Chief Complaint: Dizziness Time Seen by Provider: 04:37 Travel History International Travel<30 days: No Contact w/Intl Traveler<30days: No Traveled to known affect area: No History of Present Illness HPI After the patient was extubated by ICU, the patient left AMA and now returns after a few hours of leaving the hospital AGAINST MEDICAL ADVICE. Patient's complaint is that he feels lightheaded and dizzy. Patient was made aware that he had pulmonary infiltrates suggestive of ARDS, he had kidney failure he had elevated troponin he had an occipital fracture of his skull. PFSH Past Medical History Diminished Hearing: No Integumentary: Yes (right arm abcess) Tetanus Vaccination: < 5 Years Influenza Vaccination: No Past Surgical History Surgical History: No Previous Surgery Social History Alcohol Use: Yes Tobacco Use: Yes Substance Use: Yes (MJ, heroine, crack, dilaudid) Allergies-Medications (Allergen,Severity, Reaction): Coded Allergies: sulfamethoxazole (Verified Allergy, Severe, 04/04/18) hives trimethoprim (Verified Allergy, Severe, 04/04/18) hives Reported Meds & Prescriptions Reported Meds & Active Scripts Active Percocet (Oxycodone-Acetaminophen) 5-325 mg Tab 1 Tab PO Q6H PRN Clindamycin (Clindamycin HCl) 150 Mg Cap 300 Mg PO Q6H 10 Days [place] (Hydrocodone-Acetaminophen) 5 Mg-325 Mg Tab 1 Tab PO Q6H PRN Ibuprofen 800 Mg Tab 800 Mg PO Q8H PRN Keflex (Cephalexin) 500 Mg Cap 500 Mg PO Q6H 5 Days Physical Exam Narrative Physical Exam GENERAL: This is a well-nourished, well-developed patient, in no apparent distress. SKIN: No rashes, ecchymoses or lesions. Cool and dry. HEAD: Atraumatic. Normocephalic. No temporal or scalp tenderness. EYES: Pupils equal round and reactive. Extraocular motions intact. No scleral icterus. No injection or drainage. ENT: Nose without bleeding, purulent drainage or septal hematoma. Throat without erythema, tonsillar hypertrophy or exudate. Uvula midline. Airway patent. NECK: Trachea midline. No JVD or lymphadenopathy. Supple, nontender, no meningeal signs. Cervical collar removed CARDIOVASCULAR: Regular rate and rhythm without murmurs, gallops, or rubs. RESPIRATORY: Clear to auscultation. Breath sounds equal bilaterally. No wheezes , rales, or rhonchi. GASTROINTESTINAL: Abdomen soft, non-tender, nondistended. No guarding. MUSCULOSKELETAL: Extremities without clubbing, cyanosis, or edema. No joint tenderness, effusion, or edema noted. No calf tenderness. Negative Homans sign bilaterally. Right upper extremity with incised wound over proximal forearm NEUROLOGICAL: Awake and alert. Cranial nerves II through XII intact. Motor and sensory grossly within normal limits. Five out of 5 muscle strength in all muscle groups. Normal speech. Data Data Last Documented VS Orders Orders Admit Order (Ed Use Only) (04/04/18 05:19) [facility] Medical Decision Making Medical Screen Exam Complete: Yes Emergency Medical Condition: Yes Medical Record Reviewed: Yes Differential Diagnosis Not applicable, patient was in ICU vented patient that was extubated... shortly afteRWHICH he AMA. 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
[2018-04-04] MEDS ORDERED: ACETAMINOPHEN 325 MG TAB PO PRN (05:30)
[2018-04-04] MEDS ORDERED: METOCLOPRAMIDE HCL 10 MG/2 ML VIAL IV PUSH PRN (05:30)
[2018-04-04] MEDS ORDERED: MAGNESIUM HYDROXIDE SUSP 30 ML CUP PO PRN (05:30)
[2018-04-04] MEDS ORDERED: BISACODYL 10 MG SUPP RECTAL PRN (05:30)
[2018-04-04] MEDS ORDERED: SENNOSIDES 8.6 MG TAB PO PRN (05:30)
[2018-04-04] MEDS ORDERED: SODIUM CHLORIDE 0.9% FLUSH 10 ML FLUSH IV FLUSH PRN (05:30)
[2018-04-04] MEDS ORDERED: LACTULOSE SYRUP 20 GM/30 ML CUP PO PRN (05:30)
[2018-04-04] MEDS ORDERED: cefTRIAXone INJ 1,000 MG in SODIUM CHLORIDE 0.9% INJ 100 ML IV SCH (06:00)
[2018-04-04 07:08] LABS: AUTOMATED NEUTROPHIL # 7.3 TH/MM3 (1.8-7.7); BASOPHIL % 0.1 % (0.0-2.0); EOSINOPHIL % 0.1 % (0.0-4.0); HEMATOCRIT 31.5 % (39.0-51.0); HEMOGLOBIN 10.8 GM/DL (13.0-17.0); LYMPH % 12.9 % (9.0-44.0); LYMPHOCYTE # 1.2 TH/MM3 (1.0-4.8); MEAN CELL VOLUME 87.4 FL (80.0-100.0); MEAN CORPUSCULAR HEMOGLOBIN 29.9 PG (27.0-34.0); MEAN CORPUSCULAR HGB CONC 34.2 % (32.0-36.0); MEAN PLATELET VOLUME 8.6 FL (7.0-11.0); MONO % 9.1 % (0.0-8.0); MONOCYTE # 0.9 TH/MM3 (0-0.9); NEUT % 77.8 % (16.0-70.0); PLATELET COUNT 233 TH/MM3 (150-450); RED CELL DISTRIBUTION WIDTH 13.1 % (11.6-17.2); WHITE BLOOD COUNT 9.4 TH/MM3 (4.0-11.0)
[2018-04-04 07:34] LABS: ALBUMIN 2.1 GM/DL (3.4-5.0); ALKALINE PHOSPHATASE 56 U/L (45-117); ALT (GPT) 32 U/L (12-78); AST (GOT) 36 U/L (15-37); BICARBONATE 28.1 MEQ/L (21.0-32.0); BLOOD UREA NITROGEN 11 MG/DL (7-18); CALCIUM 7.9 MG/DL (8.5-10.1); CHLORIDE 108 MEQ/L (98-107); CREATININE 0.99 MG/DL (0.60-1.30); GLOMERULAR FILTRATION RATE 91 ML/MIN (>89); GLUCOSE,RANDOM 104 MG/DL (74-106); SODIUM (NA) 144 MEQ/L (136-145); TOTAL BILIRUBIN ADULT 0.4 MG/DL (0.2-1.0); TOTAL PROTEIN 5.8 GM/DL (6.4-8.2); TROPONIN I 0.05 NG/ML (0.02-0.05)
[2018-04-04] MEDS ORDERED: AZITHROMYCIN INJ 500 MG in SODIUM CHLOR 0.9% 250 ML INJ 250 ML IV SCH (08:00)
[2018-04-04 08:11] VITALS: BP 127/71; PULSE 79; RESP 20; TEMP 98.2; O2SAT 93
[2018-04-04] MEDS ORDERED: SODIUM CHLORIDE 0.9% FLUSH 10 ML FLUSH IV FLUSH SCH (09:00)
[2018-04-04] MEDS ORDERED: DOCUSATE SODIUM 50 MG/SENNA 8.6 MG TAB PO SCH (09:00)
[2018-04-04] MEDS ORDERED: POTASSIUM CHLORIDE 20 MEQ CONTROLLED RELEASE TAB PO ONE (10:30)
--- NOTE | 2018-04-04 10:30 | HHI.HP ---
[facility] No Primary Care Physician Admission Diagnosis BASILAR SKULL FX, BILATERAL LUNG INFILTRATES, RENAL INSUFF Diagnoses: Chief Complaint: Dizziness Travel History International Travel<30 Days: No Contact w/Intl Traveler <30 Da: No Traveled to Known Affected Are: No History of Present Illness This is a 27-year-old male who left the ICU AGAINST MEDICAL ADVICE and returned to the emergency department because of lightheadedness. Patient was found unresponsive at sobriety home from narcotic overdose and developed hypoxemic respiratory failure and was intubated and subsequently extubated yesterday. Additional findings include occipital skull fracture and has been evaluated by neurosurgery, acute kidney injury with rhabdomyolysis and a 68bscess of the right forearm status post incision and drainage with history of MRSA. Today, he feels better without dizziness he was able to ambulate without assistance. He just complains of generalized soreness. He has nonproductive cough but no fever, chills, shortness of breath and chest pain. Patient seen with mother who is concerned about his discharge disposition. Not sure if sobriety home will take him back. All other systems reviewed negative Review of Systems Except as stated in HPI: all other systems reviewed are Neg Past Family Social History Past Medical History Denies Past Surgical History As previously mentioned Reported Medications None Allergies: Coded Allergies: sulfamethoxazole (Verified Allergy, Severe, 04/04/18) hives trimethoprim (Verified Allergy, Severe, 04/04/18) hives Family History No CVA Social History Does not drink smokes a pack per day and admits to IVDU. Heroin, crack, Dilaudid. Also abuses marijuana Physical Exam Vital Signs Vital Signs Date Time Temp Pulse Resp B/P (MAP) Pulse Ox O2 Delivery O2 Flow Rate FiO2 04/04/18 08:11 98.2 79 20 127/71 (89) 93 04/04/18 03:09 99.1 93 18 133/81 (98) 97 Physical Exam GENERAL: This is a well-nourished, well-developed patient, in no apparent distress. SKIN: No rashes, ecchymoses or lesions. Cool and dry. HEAD: Atraumatic. Normocephalic. No temporal or scalp tenderness. EYES: Pupils equal round and reactive. Extraocular motions intact. No scleral icterus. No injection or drainage. ENT: Nose without bleeding, purulent drainage or septal hematoma. Throat without erythema, tonsillar hypertrophy or exudate. Uvula midline. Airway patent. NECK: Trachea midline. No JVD or lymphadenopathy. Supple, nontender, no meningeal signs. Cervical collar removed CARDIOVASCULAR: Regular rate and rhythm without murmurs, gallops, or rubs. RESPIRATORY: Clear to auscultation. Breath sounds equal bilaterally. No wheezes , rales, or rhonchi. GASTROINTESTINAL: Abdomen soft, non-tender, nondistended. No guarding. MUSCULOSKELETAL: Extremities without clubbing, cyanosis, or edema. No joint tenderness, effusion, or edema noted. No calf tenderness. Negative Homans sign bilaterally. Right upper extremity with incised wound over proximal forearm NEUROLOGICAL: Awake and alert. Cranial nerves II through XII intact. Motor and sensory grossly within normal limits. Five out of 5 muscle strength in all muscle groups. Normal speech. Laboratory Laboratory Tests Test 04/04/18 06:20 White Blood Count 9.4 Red Blood Count 3.60 Hemoglobin 10.8 Hematocrit 31.5 Mean Corpuscular Volume 87.4 Mean Corpuscular Hemoglobin 29.9 Mean Corpuscular Hemoglobin Concent 34.2 Red Cell Distribution Width 13.1 Platelet Count 233 Mean Platelet Volume 8.6 Neutrophils (%) (Auto) 77.8 Lymphocytes (%) (Auto) 12.9 Monocytes (%) (Auto) 9.1 Eosinophils (%) (Auto) 0.1 Basophils (%) (Auto) 0.1 Neutrophils # (Auto) 7.3 Lymphocytes # (Auto) 1.2 Monocytes # (Auto) 0.9 Eosinophils # (Auto) 0.0 Basophils # (Auto) 0.0 CBC Comment DIFF FINAL Differential Comment Blood Urea Nitrogen 11 Creatinine 0.99 Random Glucose 104 Total Protein 5.8 Albumin 2.1 Calcium Level 7.9 Alkaline Phosphatase 56 Aspartate Amino Transf (AST/SGOT) 36 Alanine Aminotransferase (ALT/SGPT) 32 Total Bilirubin 0.4 Sodium Level 144 Potassium Level 3.5 Chloride Level 108 Carbon Dioxide Level 28.1 Anion Gap 8 Estimat Glomerular Filtration Rate 91 Troponin I 0.05 Result Diagram: 04/04/1861904/04/18 0620 Caprini VTE Risk Assessment Caprini VTE Risk Assessment: No/Low Risk (score <= 1) Caprini Risk Assessment Model Point Value = 1 Point Value = 2 Point Value = 3 Point Value = 5 Age 41-60 Minor surgery BMI > 25 kg/m2 Swollen legs Varicose veins or History of unexplained or recurrent spontaneous Oral contraceptives or hormone replacement Sepsis (< 1 month) Serious lung disease, including pneumonia (< 1 month) Abnormal pulmonary function Acute myocardial infarction Congestive heart failure (< 1 month) History of inflammatory bowel disease Medical patient at bed rest Age 61-74 Arthroscopic surgery Major open surgery (> 45 min) Laparoscopic surgery (> 45 min) Malignancy Confined to bed (> 72 hours) Immobilizing plaster cast Central venous access Age >= 75 History of VTE Family history of VTE Factor V Leiden Prothrombin [id number] Lupus anticoagulant Anticardiolipin antibodies Elevated serum homocysteine Heparin-induced thrombocytopenia Other congenital or acquired thrombophilia Stroke (< 1 month) Elective arthroplasty Hip, pelvis, or leg fracture Acute spinal cord injury (< 1 month) Prophylaxis Regimen Total Risk Factor Score Risk Level Prophylaxis Regimen 0-1 Low Early ambulation 2 Moderate Order ONE of the following: *Sequential Compression Device (SCD) *Heparin 5000 units SQ BID 3-4 Higher Order ONE of the following medications: *Heparin 5000 units SQ TID *Enoxaparin/Lovenox 40 mg SQ daily (WT < 150 kg, CrCl > 30 mL/min) *Enoxaparin/Lovenox 30 mg SQ daily (WT < 150 kg, CrCl > 10-29 mL/min) *Enoxaparin/Lovenox 30 mg SQ BID (WT < 150 kg, CrCl > 30 mL/min) AND/OR *Sequential Compression Device (SCD) 5 or more Highest Order ONE of the following medications: *Heparin 5000 units SQ TID (Preferred with Epidurals) *Enoxaparin/Lovenox 40 mg SQ daily (WT < 150 kg, CrCl > 30 mL/min) *Enoxaparin/Lovenox 30 mg SQ daily (WT < 150 kg, CrCl > 10-29 mL/min) *Enoxaparin/Lovenox 30 mg SQ BID (WT < 150 kg, CrCl > 30 mL/min) AND *Sequential Compression Device (SCD) Assessment and Plan Problem List: (1) Dizziness ICD Code: R42 - Dizziness and giddiness Assessment and Plan This is a 27-year-old male who left the ICU AGAINST MEDICAL ADVICE and returned to the emergency department because of lightheadedness. Patient was found unresponsive at sobriety home from narcotic overdose and developed hypoxemic respiratory failure and was intubated and subsequently extubated 04/03 Dizziness which is multifactorial. Could be from occipital fracture, respiratory failure and pneumonia. This is improved. Consult physical therapy. Fall precautions Pneumonia likely aspiration status post hypoxemic respiratory failure status post intubation. Switch to IV Zosyn and continue Zithromax. We will add clindamycin which should also cover right forearm abscess status post incision and drainage. Wound care. Nebulization as needed. Acute kidney injury with rhabdomyolysis. Resolved Elevated troponin secondary to above. Denies chest pain. DVT prophylaxis with SCD and early ambulation Consult case management discharge planning pending neurosurgery evaluation for occipital skull fracture Discussed Condition With Patient and mother Gene Vázquez MD April 04, 2018 10:30
[2018-04-04] MEDS ORDERED: PIPERACIL-TAZO 3.375 GM PREMIX 50 ML IV SCH (11:00)
[2018-04-04 11:56] VITALS: BP 134/81; PULSE 84; RESP 18; TEMP 98.1; O2SAT 93
[2018-04-04] MEDS ORDERED: CLINDAMYCIN 300 MG/NS PREMIX 50 ML IV SCH (12:00)
--- NOTE | 2018-04-04 13:29 | PD.CONS ---
History of Present Illness Service Neurosurgery Consult Requested By Medicine service Reason for Consult Skull fracture Primary Care Physician No Primary Care Physician Diagnoses: History of Present Illness The patient is a 27-year-old male who was seen by the undersigned for consultation on 04/03/2018. He has been admitted to the hospital with narcotic overdose and respiratory failure as well as rhabdomyolysis and acute kidney injury with elevated troponin. He was intubated and sedated at the time of initial neurosurgery evaluation on 04/03/2018 period. Since then he was extubated and subsequently left the hospital AGAINST MEDICAL ADVICE. He has not returned back to the emergency room on the morning of 04/04/2018 complaining of dizziness and gait unsteadiness. No seizure activity, nausea, emesis reported. Review of Systems Constitutional: COMPLAINS OF: Fatigue, Dizziness, DENIES: Fever Eyes: DENIES: Blurred vision Ears, nose, mouth, throat: DENIES: Hearing loss, Vertigo Respiratory: DENIES: Shortness of breath Cardiovascular: DENIES: Chest pain Gastrointestinal: DENIES: Abdominal pain, Nausea Musculoskeletal: DENIES: Joint pain, Muscle aches Hematologic/lymphatic: DENIES: Bruising Neurologic: COMPLAINS OF: Abnormal gait, Headache, Poor Balance Psychiatric: COMPLAINS OF: Agitation Past Family Social History Allergies: Coded Allergies: sulfamethoxazole (Verified Allergy, Severe, 04/04/18) hives trimethoprim (Verified Allergy, Severe, 04/04/18) hives Past Medical History No history of significant cardiac pulmonary gastrointestinal disease diabetes or hypertension Past Surgical History No previous surgical procedures Reported Medications Reported Meds & Active Scripts Active Percocet (Oxycodone-Acetaminophen) 5-325 mg Tab 1 Tab PO Q6H PRN Clindamycin (Clindamycin HCl) 150 Mg Cap 300 Mg PO Q6H 10 Days [place] (Hydrocodone-Acetaminophen) 5 Mg-325 Mg Tab 1 Tab PO Q6H PRN Ibuprofen 800 Mg Tab 800 Mg PO Q8H PRN Keflex (Cephalexin) 500 Mg Cap 500 Mg PO Q6H 5 Days Social History Smokes 1 pack cigarettes a day Previous alcohol use-has been staying at a sobriety home. Previous cocaine, heroin use Physical Exam Vital Signs Vital Signs Date Time Temp Pulse Resp B/P (MAP) Pulse Ox O2 Delivery O2 Flow Rate FiO2 04/04/18 11:56 98.1 84 18 134/81 (98) 93 04/04/18 08:11 98.2 79 20 127/71 (89) 93 04/04/18 03:09 99.1 93 18 133/81 (98) 97 Physical Exam GENERAL: This is a well-nourished, well-developed patient, in no apparent distress. SKIN: No rashes, ecchymoses or lesions. Cool and dry. HEAD: Atraumatic. Normocephalic. No temporal or scalp tenderness. EYES: Pupils equal round and reactive. Extraocular motions intact. No scleral icterus. No injection or drainage. ENT: Nose without bleeding, purulent drainage or septal hematoma. Throat without erythema, tonsillar hypertrophy or exudate. Uvula midline. Airway patent. NECK: Trachea midline. No JVD or lymphadenopathy. Supple, nontender, no meningeal signs. CARDIOVASCULAR: Regular rate and rhythm without murmurs, gallops, or rubs. RESPIRATORY: Clear to auscultation. Breath sounds equal bilaterally. No wheezes , rales, or rhonchi. GASTROINTESTINAL: Abdomen soft, non-tender, nondistended. No hepato-splenomegaly , or palpable masses. No guarding. MUSCULOSKELETAL: Extremities without clubbing, cyanosis, or edema. No joint tenderness, effusion, or edema noted. No calf tenderness. Negative Homans sign bilaterally. NEUROLOGICAL: Awake and alert. Cranial nerves II through XII intact. Motor and sensory grossly within normal limits. Five out of 5 muscle strength in all muscle groups. Normal speech. Laboratory Laboratory Tests Test 04/04/18 06:20 White Blood Count 9.4 Red Blood Count 3.60 Hemoglobin 10.8 Hematocrit 31.5 Mean Corpuscular Volume 87.4 Mean Corpuscular Hemoglobin 29.9 Mean Corpuscular Hemoglobin Concent 34.2 Red Cell Distribution Width 13.1 Platelet Count 233 Mean Platelet Volume 8.6 Neutrophils (%) (Auto) 77.8 Lymphocytes (%) (Auto) 12.9 Monocytes (%) (Auto) 9.1 Eosinophils (%) (Auto) 0.1 Basophils (%) (Auto) 0.1 Neutrophils # (Auto) 7.3 Lymphocytes # (Auto) 1.2 Monocytes # (Auto) 0.9 Eosinophils # (Auto) 0.0 Basophils # (Auto) 0.0 CBC Comment DIFF FINAL Differential Comment Blood Urea Nitrogen 11 Creatinine 0.99 Random Glucose 104 Total Protein 5.8 Albumin 2.1 Calcium Level 7.9 Alkaline Phosphatase 56 Aspartate Amino Transf (AST/SGOT) 36 Alanine Aminotransferase (ALT/SGPT) 32 Total Bilirubin 0.4 Sodium Level 144 Potassium Level 3.5 Chloride Level 108 Carbon Dioxide Level 28.1 Anion Gap 8 Estimat Glomerular Filtration Rate 91 Troponin I 0.05 Result Diagram: 04/04/18 0620 04/04/18 0620 Imaging Previous 04/03/2018 CT scan of the head revealed a hairline nondisplaced right occipital skull fracture. No intracranial abnormality noted. Assessment and Plan Assessment and Plan Impression: 1. Occipital skull fracture. No definite traumatic brain injury. Plan: Continue observation No intervention anticipated for the occipital skull fracture. We proceed with physical therapy and activity as tolerated. No cervical collar recommended at this time. Pancho Harvey MD April 04, 2018 13:29
--- NOTE | 2018-04-05 07:53 | PD.AMA ---
Against Medical Advice Note Discharge Disposition: Against Medical Advice Pt Condition on Discharge: Guarded AMA Statement Patient Alex Hopkins has decided to leave the hospital against medical advice. This patient has the capacity to refuse care and understands the risks of leaving, including permanent disability and/or , and has had an opportunity to ask questions about his condition. The patient has been informed that he may return for care at any time, and follow up has been arranged/ advised. Gene Vázquez MD April 05, 2018 07:53
== END 2018-04-04 17:39 | disposition left against medical advice (07) ==
LOC: NEPE 02:51 → NEDA 05:21 → NEPGCP 06:24
PROVIDERS: ADMIT Internal Medicine; ATTEND Internal Medicine
DX: S02.119A Unspecified fracture of occiput, initial encounter for closed fracture (principal); T40.601A Poisoning by unspecified narcotics, accidental (unintentional), initial encounter; N17.9 Acute kidney failure, unspecified; J18.9 Pneumonia, unspecified organism; J96.91 Respiratory failure, unspecified with hypoxia; R74.8 Abnormal levels of other serum enzymes; M62.82 Rhabdomyolysis; F12.10 Cannabis abuse, uncomplicated; R91.8 Other nonspecific abnormal finding of lung field; L02.413 Cutaneous abscess of right upper limb; B95.62 Methicillin resistant Staphylococcus aureus infection as the cause of diseases classified elsewhere
CPT/HCPCS: 80053; 84484; 85025; 96365; 96366; 99285; G0378; J0456; J0696; J2543; J7050